=== PATIENT | female | born 1995 | race Caucasian/White ===

== ENCOUNTER 2024-10-30 09:45 | Outpatient (REF) | payer MEDICAID, SELFPAY ==
--- OUTSIDE RECORDS SUMMARY | 2024-10-30 09:00 | XMS_ITS | Encounter Summary ---
Author Organization [employer] Address [address] [place] [address] Care Team Providers Care Business Development Associate Name Role Phone Roddy Marcial CNP Primary Care Provider [phone] Encounter Details Date Type Department Care Team ([facility] st Contact Info) Description 10/30/2024 9:00 AM EDT Office Visit [facility] MED & PEDS [address], [place] [id number] Roddy Marcial CNP [address] [place] [address] Encounter to establish care (Primary Dx); Encounter for smoking cessation counseling; Family planning counseling; Dietary counseling; Exercise counseling; Class 3 severe obesity due to excess calories with body mass index (BMI) of 40.0 to 44.9 in adult, unspecified whether serious comorbidity present; Irregular periods Social History Tobacco Use Types Packs/Day Years Used Date Smoking Tobacco: Never Smokeless Tobacco: Current Tobacco Cessation:Ready to Q uit: Not Asked; Counseling Given: Not Answered Alcohol Use Standard Drinks/Week Comments Yes 0 (1 standard drink = 0.6 oz pur e alcohol) Depression Answer Date Recorded Patient Health Questionnaire-9 Score 4 10/30/2024 Patient Health Questionnaire-9 Score 4 10/30/2024 Last PHQ-9: Questionnaire Data Not on file 0 10/30/2024 Housing Stability Answer Date Recorded What is your housing situation today? I am not s ure 10/30/[address] you li ve. Do you have problems with any of the following? None of the above 10/30/2024 Food Insecurity Answer Date Recorded Within the past 12 months, y ou worried that your food would run out before you got money to buy more: Never True 10/30/2024 Within the past 12 months,th e food you bought just didn't last and you didn't have enough money to get more: Never True Transportation Answer Date Recorded In the past 12 months, has l ack of transportation kept you from medical appts, meetings, work or from getting things needed for daily living? No 10/30/2024 Utilities Answer Date Recorded In the past 12 months, has t he electric, gas, oil or water company threatened to shut off services in your home? No 10/30/2024 Depression Answer Date Recorded Patient Health Questionnaire-2 Score 0 10/30/2024 Internet Access Answer Date Recorded Internet Access Q1 Yes 10/30/2024 Internet Access Q2 Not on file 10/30/2024 Comments Unknown Intention Date Recorded Wants to become (finding) 10/30 Sex and Gender Information Value Date Recorded Sex Assigned at Female 10/29/2024 1:48 PM EDT Legal Sex Female 9:14 AM EDT Gender Identity Female 10/29/2024 1:48 PM EDT Sexual Orientation Don't know 10/29/2024 1: 48 PM EDT documented as of this encounter Last Filed Vital Signs Vital Sign Reading Time Taken Comments Blood Pressure 122/80 10/30/2024 9:02 AM EDT Pulse 80 10/30/2024 9:02 AM EDT Temperature 36.9 C (98.4 F) 10/30/2024 9:02 AM EDT Respiratory Rate 20 10/30/2024 9:02 AM EDT Oxygen Saturation - - Inhaled Oxygen Concentration - - Weight 111 kg (245 lb) 10/30/2024 9:02 AM EDT Height 157.5 cm (5' 2 ) 10/30/2024 9:02 AM EDT Body Mass Index 44.81 10/30/2024 9:02 AM EDT documented in this encounter Functional Status * Over the past 2 weeks, how often have you been bothered by any of the following problems? Question Answer Date of Assessment Author Patient Health Questionnaire -2 Score 0 10/30/2024 9:41 AM EDT Margie Madera MA * Little interest or pleasure in doing things Answer Date of Assessment Author Not at all 10/30/2024 9:41 AM EDT Mimi Foy MA * Feeling down, depressed, or hopeless Answer Date of Assessment Author Not at all 10/30/2024 9:41 AM EDT [employer] Mimi lópez [place] * Trouble falling or staying asleep, or sleeping too much Answer Date of Assessment Author Nearly every day 10/30/2024 9:41 AM EDT [employer] Mimi lynn [place] * Feeling tired or having little energy Answer Date of Assessment Author Several days 10/30/2024 9:41 AM EDT [employer] Mimi lópez [place] * Poor appetite or overeating Answer Date of Assessment Author Not at all 10/30/2024 9:41 AM EDT [employer] Mimi lópez [place] * Feeling bad about yourself - or that you are a failure or have let yourself or your family down Answer Date of Assessment Author Not at all 10/30/2024 9:41 AM EDT [employer] Mimi lópez [place] * Trouble concentrating on things, such as reading the newspaper or watching television Answer Date of Assessment Author Not at all 10/30/2024 9:41 AM EDT [employer] Mimi lópez [place] * Moving or speaking so slowly that other people could have noticed? Or the opposite - being so fidgety or restless that you have been moving around a lot more than usual. Answer Date of Assessment Author Not at all 10/30/2024 9:41 AM EDT [employer] Mimi lópez [place] * Thoughts that you would be better off or hurting yourself in some way Answer Date of Assessment Author Not at all 10/30/2024 9:41 AM EDT [employer] Mimi lópez MA * Patient Health Questionnaire-9 Score Answer Date of Assessment Author 4 10/30/2024 9:41 AM EDT [employer] Mimi lópez [place] * How difficult have these problems made it for you to do your work, take care of things at home, or get along with other people? Answer Date of Assessment Author Not difficult at all 10/30/2024 9:41 AM EDT Mimi Ocasio MA documented as of this encounter Progress Notes * Roddy Marcial CNP - 10/30/2024 9:00 AM EDT Subjective: Oswald Kendall is a 29 y.o. female who presents to the office for a new patient visit. Previous PCP unknown. Interim history: Last PCP visit unknown, hasn't seen a doctor since she was a teenager. Never has had cervical cancer screening. Current concerns: Trying to conceive. Last OCPs taken 3-4 months ago. Periods were regular on OCPs. Now has been amenorrheic since last OCP pack. Not currently taking PNV or folic acid. Problem List[1] Surgical History[2] Family History[3] Social History Living situation: Employment/Education: Diet/exercise: Substance use: -alcohol : none -tobacco: vape- uses throughout the day, sometimes wakes up at night to use it. -opioids: none Sexual activity: male partner, feels safe in relationship, seeking for over a year. Contraception: n/a Mental health: - Denies concerns about depression or anxiety; mental health feels manageable Menstrual cycles described as very irregular; history of missed periods, prolonged periods, and unpredictable cycle patterns after stopping control Allergies[4] Review of Systems Constitutional: Negative for fatigue, fever and unexpected weight change. Eyes: Negative. Respiratory: Negative. Cardiovascular: Negative. Gastrointestinal: Negative. Endocrine: Negative for cold intolerance, heat intolerance, polydipsia, polyphagia and polyuria. Genitourinary: Positive for menstrual problem. Negative for dyspareunia, pelvic pain and vaginal discharge. Psychiatric/Behavioral: Negative. Vitals: 10/30/24 0902 BP: 122/80 BP Location: Right arm Patient Position: Sitting BP Cuff Size: Adult Pulse: 80 Resp: 20 Temp: 98.4 ??F (36.9 ??C) TempSrc: Oral Weight: 245 lb (111 kg) Height: 5' 2 (1.575 m) Physical Exam Constitutional: Appearance: Normal appearance. She is normal weight. Cardiovascular: Rate and Rhythm: Normal rate and regular rhythm. Pulses: Normal pulses. Heart sounds: Normal heart sounds. No murmur heard. No friction rub. No gallop. Pulmonary: Effort: Pulmonary effort is normal. No respiratory distress. Breath sounds: Normal breath sounds. No wheezing or rales. Neurological: General: No focal deficit present. Mental Status: She is alert and oriented to person, place, and time. Psychiatric: Mood and Affect: Mood normal. Behavior: Behavior normal. Thought Content: Thought content normal. Judgment: Judgment normal. Assessment & Plan Encounter to establish care 29 y/o F with no chronic medical conditions who is seeking . Routine Screening and Health Maintenance Optometry: needs referral Dentist: needs referral ASCVD risk: 29 y.o. femalesmoker obese Lab Review: orders written for new lab studies as appropriate; see orders Routine Cancer Screening Breast CA: n/a Cervical CA: due Colon CA: n/a Lung CA: n/a Orders: CBC auto differential; Future Basic Metabolic Panel; Future TSH W/Reflex to FT4; Future Lipid Panel, Standard; Future HIV-1/2 Antigen and Antibodies, Fourth Generation, with Reflexes; Future Hepatitis C Antibody with Reflex to HCV, RNA, Quantitative, Real-Time PCR; Future Hemoglobin A1c; Future hCG, Total, Quantitative; Future multivitamin () 27-0.8 MG tablet; Take 1 tablet by mouth Once per day. folic acid (Folvite) 800 MCG tablet; Take 1 tablet (0.8 mg) by mouth Once per day. Encounter for smoking cessation counseling Will start patient on Chantix starter pack for smoking cessation Risks and side effects reviewed. Recommended lifestyle modifications for smoking cessation, including gradual reduction of vaping, increased physical activity, and stress management techniques. Orders: Varenicline Tartrate, Starter, (Chantix Starting Month ) 0.5 MG X 11 & 1 MG X 42 tablet therapy pack; Take 1 tablet by mouth Once per day. Family planning counseling Pt is actively seeking x 1 year Plan to obtain routine labs Plan to complete routine cervical cancer screening at f/u PNV and folic acid rx'd Smoking cessation discussed Based on routine lab work results will consider further infertility workup and specialty referral. Dietary counseling Dietary Recommendations: Fruits, vegetables, whole grains, protein foods, and fat-free or low-fat dairy products are healthychoices. Eat different types of protein foods in your diet. This can include seafood, lean meats, poultry, beans, peas, lentils, nuts, seeds, soy products, and eggs. Limit foods and beverages higher in added sugars, saturated fat, and sodium. Exercise counseling Exercise Recommendations: At least 150 minutes of moderate-intensity physical activity per week, or an equivalent combinationof moderate- and vigorous-intensity activity Class 3 severe obesity due to excess calories with body mass index (BMI) of 40.0 to 44.9 in adult, unspecified whether serious comorbidity present Irregular periods Ordered blood test to confirm status due to amenorrhea for 3-4 months. Ordered routine labs to r/o underlying cause F/u within 1 month for pap [1] Patient Active Problem List Diagnosis Severe obesity (CMS/HCC) [2] No past surgical history on file. [3] No family history on file. [4] Allergies Allergen Reactions Acetaminophen Rash documented in this encounter Plan of Treatment Upcoming Encounters Date Type Department Care Team (Late st Contact Info) Description 12/10/2024 9:00 AM EDT Procedure Visit [facility] [address] [place] [address] Susan Quintana MD [address] [place] [address] 04/30/2025 10:15 AM EDT Office Visit [facility] [address] [place] [address] Naldo Young Scheduled Orders Name Type Priority Associated Diagnoses Orde r Schedule CBC auto differential Lab Routine Encounter to establish care Expected: 10/30/2024 (Approximate), Expires: 10/30/2025 Basic Metabolic Panel Lab Routine Encounter to establish care Expected: 10/30/2024 (Approximate), Expires: 10/30/2025 TSH W/Reflex to FT4 Lab Routine Encounter to establish care Expected: 10/30/2024 (Approximate), Expires: 10/30/2025 Lipid Panel, Standard Lab Routine Encounter to establish care Expected: 10/30/2024 (Approximate), Expires: 10/30/2025 HIV-1/2 Antigen and Antibodies, Fourth Generation, with Reflexes Lab Routine Encounter to establish care Expected: 10/30/2024 (Approximate), Expires: 10/30/2025 Hepatitis C Antibody with Reflex to HCV, RNA, Quantitative, Real-Time PCR Lab Routine Encounter to establish care Expected: 10/30/2024, Expires: 10/30/2025 Hemoglobin A1c Lab Routine Encounter to establish care Expected: 10/30/2024 (Approximate), Expires: 10/30/2025 hCG, Total, Quantitative Lab Routine Encounter to establish care Expected: 10/30/2024 (Approximate), Expires: 10/30/2025 documented as of this encounter Visit Diagnoses Diagnosis Encounter to establish care- Primary Encounter for smoking cessation counseling Family planning counseling Other general counseling and advice for contraceptive management Dietary counseling Dietary surveillance and counseling Exercise counseling Class 3 severe obesity due to excess calories with body mass index (BMI) of 40.0 to 44.9 in adult, unspecified whether serious comorbidity present Irregular periods documented in this encounter Additional Health Concerns Assessment Noted Time PHQ-9 Depression Total Score: 4 10/31/19 9:41 AM EDT documented as of this encounter Care Teams Business Development Associate Relationship Specialty Start Date End Date Roddy Marcial CNP [address] [place] [address] PCP - General Family Medicine 10/30/24 documented as of this encounter
--- OUTSIDE RECORDS SUMMARY | 2024-10-30 11:00 | XMS_ITS | Encounter Summary ---
Author Organization [employer] Address [address] [facility] [address] [place] [address] Care Team Providers Care Director Of Manufacturing Name Role Phone Roddy Marcial NEETU Primary Care Provider [phone] Reason for Visit * Reason Comments Routine Cleaning Dental Exam Encounter Details Date Type Department Care Team ([facility] st Contact Info) Description 10/30/2024 11:00 AM EDT Office Visit [facility] ADULT DENTAL [address] [place] [address] Naldo Young Dental caries (Primary Dx) Social History Tobacco Use Types Packs/Day Years Used Date Smoking Tobacco: Never Smokeless Tobacco: Current Alcohol Use Standard Drinks/Week Comments Yes 0 [...] Q2 Not on file 10/30/2024 Comments Unknown Sex and Gender Information Value Date Recorded Sex Assigned at Female 10/29/2024 1:48 PM EDT Legal Sex Female 9:14 AM EDT Gender Identity Female 10/29/2024 1:48 PM EDT Sexual Orientation Don't know 10/29/2024 1: 48 PM EDT documented as of this encounter Last Filed Vital Signs Vital Sign Reading Time Taken Comments Blood Pressure 124/76 10/30/2024 10:45 AM EDT Pulse 65 10/30/2024 10:45 AM EDT Temperature - - Respiratory Rate - - Oxygen Saturation - - Inhaled Oxygen Concentration - - Weight - - Height - - Body Mass Index - - documented in this encounter Functional Status * [...] 9:41 AM EDT Mimi Foy MA * Trouble falling or staying asleep, or sleeping too much Answer Date of Assessment Author Nearly every day 10/30/2024 9:41 AM EDT Mimi Suggs MA * Feeling tired or having little energy Answer Date of Assessment Author Several days 10/30/2024 9:41 AM EDT Mimi Foy MA * Poor appetite or overeating Answer Date of Assessment Author Not at all 10/30/2024 9:41 AM EDT Mimi Suggs MA * Feeling bad about yourself - or that you are a failure or have let yourself or your family down Answer Date of Assessment Author Not at all 10/30/2024 9:41 AM EDT Mimi Foy MA * Trouble concentrating on things, such as reading the newspaper or watching television Answer Date of Assessment Author Not at all 10/30/2024 9:41 AM EDT Mimi Foy MA * Moving or speaking so slowly that other people could have noticed? Or the opposite - being so fidgety or restless that you have been moving around a lot more than usual. Answer Date of Assessment Author Not at all 10/30/2024 9:41 AM EDT Mimi Foy MA * Thoughts that you would be better off or hurting yourself in some way Answer Date of Assessment Author Not at all 10/30/2024 9:41 AM EDT Mimi Foy MA * Patient Health Questionnaire-9 Score Answer Date of Assessment Author 4 10/30/2024 9:41 AM EDT Mimi Foy MA * How difficult have these problems made it for you to do your work, take care of things at home, or get along with other people? Answer Date of Assessment Author Not difficult at all 10/30/2024 9:41 AM EDT Mimi Ocasio MA documented as of this encounter Plan of Treatment Upcoming Encounters Date Type Department Care Team (Late st Contact Info) Description 12/10/2024 9:00 AM EDT Procedure Visit [facility] MED [facility] PED[facility] [address] [place] [address] Susan Quintana MD [address] [place] [address] 04/30/2025 10:15 AM EDT Office Visit [facility] ADULT D[facility] [address] [place] [address] Naldo Young Scheduled Orders Name Type Priority Associated Diagnoses Orde r Schedule 31 NIKKIE 31 NIKKIE RESIN-BASED COMPOSITE - 2 SURF, POSTERIOR Dental Routine [address] [facility] 10/30/2024 2 LO 2 LO RESIN-BASED COMPOSITE - 2 SURF, POSTERIOR Dental Routine [address] [place] 10/30/2024 3 MO 3 MO RESIN-BASED COMPOSITE - 2 SURF, POSTERIOR Dental Routine 1 Occurrences [facility] 10/30/2024 10 ML 10 ML RESIN-BASED COMPOSITE - 2 SURF, ANTERIOR Dental Routine 1 Occurrences [facility] 10/30/2024 13 MO 13 MO RESIN-BASED COMPOSITE - 2 SURF, POSTERIOR Dental Routine 1 Occurrences [facility] 10/30/2024 15 O 15 O RESIN-BASED COMPOSITE - 1 SURF, POSTERIOR Dental Routine 1 Occurrences [facility] 10/30/2024 18 O 18 O RESIN-BASED COMPOSITE - 1 SURF, POSTERIOR Dental Routine 1 Occurrences [facility] 10/30/2024 29 MOD 29 MOD RESIN-BASED COMPOSITE - 3 SURF, POSTERIOR Dental Routine 1 Occurrences [facility] 10/30/2024 30 MOB 30 MOB RESIN-BASED COMPOSITE - 3 SURF, POSTERIOR Dental Routine 1 Occurrences [facility] 10/30/2024 4,5,12 4,5,12 MAXILLARY PARTIAL DENTURE - RESIN BASE (INCLUDING, RETENTIVE/CLASPING MATERIALS, RESTS, AND TEETH) Dental Routine 1 Occurrences [facility] 10/30/2024 CONSULTATION - DIAGNOSTIC SERVICE PROVIDED BY DENTIST OR PHYSICIAN OTHER THAN REQUESTING DENTIST OR PHYSICIAN Dental Routine 1 Occurrenc es starting 10/30/2024 DENTURE IMPRESSION Dental Routine 1 Occu rrences starting 10/30/2024 BITE REGISTRATION Dental Routine 1 Occur rences starting 10/30/2024 WAX TRY IN Dental Routine 1 Occurrences starting 10/30/2024 COMPREHENSIVE ORAL EVALUATION - NEW OR ESTABLISHED PATIENT Dental Routine 1 Occurrence s starting 10/30/2024 16 16 REMOVAL OF IMPACTED TOOTH - SOFT TISSUE Dental Routine 1 Occurrence s starting 10/30/2024 32 32 REMOVAL OF IMPACTED TOOTH - PARTIALLY BONY Dental Routine 1 Occurre nces starting 10/30/2024 PROPHYLAXIS - ADULT Dental Routine 1 Occ urrences starting 10/30/2024 documented as of this encounter Procedures Procedure Name Priority Date/Time Associated Diagnosis Comments 15 O COMPOSITE FILLING Routine 10/30/2024 12:00 AM EDT 21 DO COMPOSITE FILLING Routine 10/30/2024 12:00 AM EDT 20 MO COMPOSITE FILLING Routine 10/30/2024 12:00 AM EDT 28 DO COMPOSITE FILLING Routine 10/30/2024 12:00 AM EDT 29 MO COMPOSITE FILLING Routine 10/30/2024 12:00 AM EDT 3 O COMPOSITE FILLING Routine 10/30/2024 12:00 AM EDT 30 NIKKIE COMPOSITE FILLING Routine 10/30/2024 12:00 AM EDT 14 O AMALGAM FILLING Routine 10/30/2024 12:00 AM EDT 18 O AMALGAM FILLING Routine 10/30/2024 12:00 AM EDT 29 DO AMALGAM FILLING Routine 10/30/2024 12:00 AM EDT 30 MO AMALGAM FILLING Routine 10/30/2024 12:00 AM EDT documented in this encounter Visit Diagnoses Diagnosis Dental caries- Primary Unspecified dental caries documented in this encounter Additional Health Concerns Assessment Noted Time PHQ-9 Depression Total Score: 4 10/31/19 9:41 AM EDT documented as of this encounter Care Teams Director Of Manufacturing Relationship Specialty Start Date End Date Roddy Marcial CNP [address] [place] [id number] PCP - General Family Medicine 10/30/24 documented as of this encounter
--- OUTSIDE RECORDS SUMMARY | 2024-10-30 11:36 | XMS_ITS | Clinical Summary ---
Author Organization [employer] [facility] it[facility] Address [address] [place] [address] Care Team Providers Care Investor Relations Coordinator Name Role Phone Unavailable Primary Care Provider Unavailabl e Social History Tobacco Use Types Packs/Day Years Used Date Smoking Tobacco: Never Assessed Comments Unknown Sex and Gender Information Value Date Recorded Sex Assigned at Not on file Legal Sex Female 10:48 PM EST Gender Identity Not on file Sexual Orientation Not on file Plan of Treatment Health Maintenance Due Date Last Done Comments DTaP,Tdap,and Td Vaccines (1 - Tdap) 06/16/2015 Hepatitis B Vaccines (1 of 3 - 19+ 3-dose series) 06/16/2015 Cervical Cancer Screening: P ap Smear 2017 COVID-19 Vaccine (3 - Pfizer risk series) 08/03/2020 07/06/2020, 2020 HIV Screening 01/16/2022 Hepatitis C Screening 01/16/2022 Social Influencers of Health Screening 01/16/2022 Depression Screening 02/14/2024 Influenza Vaccine (#1) 2024 HIB Vaccines Aged Out No longer eligi ble based on patient's age to complete this topic HPV Vaccines Aged Out No longer eligi ble based on patient's age to complete this topic Hepatitis A Vaccines Aged Out No long er eligible based on patient's age to complete this topic IPV Vaccines Aged Out No longer eligi ble based on patient's age to complete this topic MMR Vaccines Aged Out No longer eligi ble based on patient's age to complete this topic Meningococcal ACWY Vaccine Aged Out N o longer eligible based on patient's age to complete this topic Meningococcal B Vaccine Aged Out No l onger eligible based on patient's age to complete this topic Pneumococcal Vaccine: Pediatrics (0 to 5 Years) and At-Risk Patients (6 to 49 Years) Aged Out No longer eligible b ased on patient's age to complete this topic RSV Immunization Patients Under 20 months Aged Out No longer eligible b ased on patient's age to complete this topic Varicella Vaccines Aged Out No longer eligible based on patient's age to complete this topic
--- OUTSIDE RECORDS SUMMARY | 2024-10-30 11:36 | XMS_ITS | Clinical Summary ---
Author Organization [employer] Address [address] [facility] 7t [place] [address] Care Team Providers Care Tank Farm Gauger Name Role Phone Roddy Marcial CNP Primary Care Provider [phone] Allergies Active Allergy Reactions Criticality Noted Date Comments Acetaminophen Rash Low 10/30/2024 Medications multivitamin () 27-0.8 MG tabletIndicati ons:Encounter to establish care Take 1 tablet by mouth Once per day. 30 tablet 5 Active folic acid (Folvite) 800 MCG tabletIndicati ons:Encounter to establish care Take 1 tablet (0.8 mg) by mouth Once per day. 30 tablet 11 5 10/31/19 26 Active Varenicline Tartrate, Starter, (Chantix Starting Month ) 0.5 MG X 11 & 1 MG X 42 tablet therapy packIndication s:Encounter for smoking cessation counseling Take 1 tablet by mouth Once per day. 1 each 5 11/30/19 25 Active amoxicillin (Amoxil) 500 MG capsule Take 1 capsule by mouth 2 times daily. 5 10/31/19 25 Discontinued Active Problems Problem Noted Date Diagnosed Date Severe obesity 10/30/2024 Encounters Date Type Department Care Team Description 10/30/2024 11:00 AM EDT Office Visit [facility] ADULT DENTAL [address] [place] [address] Naldo Young Dental caries (Primary Dx) 10/30/2024 9:00 AM EDT Office Visit [facility] MED & PED[facility] [address] [place] [address] Roddy Marcial CNP Encounter to establish care (Primary Dx); Encounter for smoking cessation counseling; Family planning counseling; Dietary counseling; Exercise counseling; Class 3 severe obesity due to excess calories with body mass index (BMI) of 40.0 to 44.9 in adult, unspecified whether serious comorbidity present; Irregular periods 10/30/2024 Refill [facility] [address] [place] [address] Roddy Marcial CNP Encounter for smoking cessation counseling 10/30/2024 Travel 10/23/2024 Patient Outreach [facility] [address] [place] [address] Claudy Christie MD Pre-visit Planning (Pre visit planning LVM ) 10/15/2024 Telephone [facility] [address] [place] [address] Mimi Madera MA chart prep 10/07/2024 Telephone [facility] [address] [place] [address] Claudy Christie MD CHW - New Patient Assistance from Last 3 Months Immunizations Immunization Administration Dates Next Due DTaP 11/27/2000, 8,1996,10/28,1996 HPV, Quadrivalent 08/22/2008 Hep B, Unspecified 1996,1996, 997 HiB, unspecified 12/01/1997, 7,1996,08/15 IPV 11/27/2000, 8,1996,08/15 Influenza, IIV3, injectable 03/31/2006 Influenza, seasonal, injecta ble, preservative free 12/02/2010 MMR 01/17/2002,06/30/1997 Meningococcal ACWY, unspecified 08/22/2008 Pfizer Covid-19 Vaccine 12+ 07/06/2020, Tdap 08/22/2008 Varicella 08/22/2008,06/30/1997 Family History Medical History Relation Name Comments Diabetes Mother high blood pressure Mother Relation Name Status Comments Mother Social History Tobacco Use Types Packs/Day Years [...] Don't know 10/29/2024 1: 48 PM EDT Last Filed Vital Signs Vital Sign Reading Time Taken Comments Blood Pressure 124/76 10/30/2024 10:45 AM EDT Pulse 65 10/30/2024 10:45 AM EDT Temperature 36.9 C (98.4 F) 10/30/2024 9:02 AM EDT Respiratory Rate 20 10/30/2024 9:02 AM EDT Oxygen Saturation - - Inhaled Oxygen Concentration - - Weight 111 kg (245 lb) 10/30/2024 9:02 AM EDT Height 157.5 cm (5' 2 ) 10/30/2024 9:02 AM EDT Body Mass Index 44.81 10/30/2024 9:02 AM EDT Plan of Treatment Upcoming Encounters Date Type Department Care Team (Late st Contact Info) Description 12/10/2024 9:00 AM EDT Procedure Visit [facility] MED [facility] PEDS [address] [place] [address] Susan Quintana MD [address] [place] [address] 04/30/2025 10:15 AM EDT Office Visit [facility] ADULT DENTAL [address] [place] [address] Naldo Young Health Maintenance Due Date Last Done Comments Dental Oral Exam 1996 Dental Prophylaxis 1996 Dental X-Ray: Bitewings 1996 Dental X-Ray: Full Mouth 1996 HIV Screening 1996 Lipid Panel 1996 HPV Vaccines (2 - 2-dose series) 02/22/2009 08/22/2008 Hepatitis C Screening 2014 Pap Smear 2017 DTaP/Tdap/Td Vaccines (7 - Td or Tdap) 08/22/2018 08/22/2008, 11/27/2000, 12/01/1997, Additional history exists COVID-19 Vaccine ( season) 2024 07/06/2020, 2020 Influenza Vaccine (#1) 2024 12/02/2010, 2006 Alcohol/Substance Use Screening 10/30/2025 10/30/2024 Depression Screening 10/30/2025 10/30/2024, 10/31/19 Disability Screening 10/30/2025 10/30/2024 Family Planning (PISQ) 10/30/2025 10/30/2024 SDOH Screening 10/30/2025 10/30/2024 Tobacco Screening 10/30/2025 10/30/2024 Zoster Vaccines (1 of 2) 2046 RSV Patients and Patients Aged 60 years or older (1 - 1-dose 75+ series) 06/16/2071 Hepatitis B Vaccines Completed 1996, 1996, 1996 HIB Vaccines Completed 12/01/1997, 12/14, 1996, Additional history exists IPV Vaccines Completed 11/27/2000, 11/13, 1996, Additional history exists Meningococcal Vaccine Aged Out 08/22/2008 No rene mercedes eligible based on patient's age to complete this topic Hepatitis A Vaccines Aged Out No long er eligible based on patient's age to complete this topic Meningococcal B Vaccine Aged Out No l onger eligible based on patient's age to complete this topic Pneumococcal Vaccine: Pediatrics (0 to 5 Years) and At-Risk Patients (6 to 49) Years Aged Out No longer eligible based on patient's age to complete this topic RSV under 20 months Aged Out No longe r eligible based on patient's age to complete this topic Rotavirus Vaccines Aged Out No longer eligible based on patient's age to complete this topic Procedures Procedure Name Priority Date/Time Associated Diagnosis Comments 15 O COMPOSITE FILLING Routine 10/30/2024 12:00 AM EDT 14 O AMALGAM FILLING Routine 10/30/2024 12:00 AM EDT 18 O AMALGAM FILLING Routine 10/30/2024 12:00 AM EDT 21 DO COMPOSITE FILLING Routine 10/30/2024 12:00 AM EDT 20 MO COMPOSITE FILLING Routine 10/30/2024 12:00 AM EDT 28 DO COMPOSITE FILLING Routine 10/30/2024 12:00 AM EDT 29 MO COMPOSITE FILLING Routine 10/30/2024 12:00 AM EDT 29 DO AMALGAM FILLING Routine 10/30/2024 12:00 AM EDT 30 MO AMALGAM FILLING Routine 10/30/2024 12:00 AM EDT 3 O COMPOSITE FILLING Routine 10/30/2024 12:00 AM EDT 30 NIKKIE COMPOSITE FILLING Routine 10/30/2024 12:00 AM EDT from Last 3 [place] [id number] HSN PARTIAL DENTAL - HSN PARTIAL (MEDICAID) Care Teams Tank Farm Gauger Relationship Specialty Start Date End Date Roddy Marcial CNP [address] [facility] [place] [address] PCP - General Family Medicine 10/30/24
--- OUTSIDE RECORDS SUMMARY | 2024-10-30 11:36 | XMS_ITS | Encounter Summary ---
Author Organization [employer] Address [address] [facility] [address] [place] [address] Care Team Providers Care Berry Grower Name Role Phone Roddy Marcial CNP Primary Care Provider [phone] Reason for Visit * Reason Onset Date Comments Med Refill 10/30/2024 Encounter Details Date Type Department Care Team (Late st Contact Info) Description 10/30/2024 Refill [facility] [address] [place] [address] Roddy Marcial CNP [address] [place] [address] Encounter for smoking cessation counseling Social History Tobacco Use Types Packs/Day Years [...] PM EDT documented as of this encounter Functional Status * Over the [...] AM EDT Mimi Foy MA * Feeling bad about yourself - or that you are a failure or have let yourself or your family down Answer Date of Assessment Author Not at all 10/30/2024 9:41 AM EDT Mimi Foy MA * Trouble concentrating on things, such as reading the newspaper or watching television Answer Date of Assessment Author Not at all 10/30/2024 9:41 AM EDT Sheryl-Mimi Wood MA * Moving or speaking so slowly that other people could have noticed? Or the opposite - being so fidgety or restless that you have been moving around a lot more than usual. Answer Date of Assessment Author Not at all 10/30/2024 9:41 AM EDT Sheryl-Co Mimi lópez [place] * Thoughts that you would be better off or hurting yourself in some way Answer Date of Assessment Author Not at all 10/30/2024 9:41 AM EDT Sheryl-Co Mimi lópez MA * Patient Health Questionnaire-9 [...] Ocasio MA documented as of this encounter Miscellaneous Notes * Telephone Encounter - Meseret Montes LPN - 10/30/2024 11:24 AM EDT Per pharmacy; Incorrect directions for a starter pack. documented in this encounter Plan of Treatment Upcoming Encounters Date Type Department Care Team ([facility] st Contact Info) Description 12/10/2024 9:00 AM EDT Procedure Visit [facility] [address] [place] [address] Susan Quintana MD [address] [place] [address] 04/30/2025 10:15 AM EDT Office Visit [facility] AD[facility] [address] [place] [address] Naldo Young documented as of this encounter Visit Diagnoses Diagnosis Encounter for smoking cessation counseling documented in this encounter Additional Health Concerns Assessment Noted Time PHQ-9 Depression Total Score: 4 10/31/19 9:41 AM EDT documented as of this encounter Care Teams Berry Grower Relationship Specialty Start Date End Date Roddy Marcial CNP [address] [place] [id number] PCP - General Family Medicine 10/30/24 documented as of this encounter
--- OUTSIDE RECORDS SUMMARY | 2024-10-30 11:36 | XMS_ITS | Encounter Summary ---
Author Organization [employer] Address [address] [facility] [address] [place] [address] Care Team Providers Care Quality Assurance Group Leader Name Role Phone Roddy Marcial CNP Primary Care Provider [phone] Encounter Details Date Type Department Care Team (Latest Contact Info) Description 10/30/2024 Travel Social History Tobacco Use Types Packs/Day Years [...] EDT [place] Mimi lópez [place] * Feeling down, depressed, or hopeless Answer Date of Assessment Author Not at all 10/30/2024 9:41 AM EDT Sau[place]o-[facility] Mimi lópez [place] * Trouble falling or staying asleep, or sleeping too much Answer Date of Assessment Author Nearly every day 10/30/2024 9:41 AM EDT Sheryl-C Mimi lynn MA * Feeling tired or [...] EDT [place] Mimi lópez [place] * Trouble concentrating on [...] 9:41 AM EDT Sheryl-Mimi Wood MA * Thoughts that you would be better off or hurting yourself in some way Answer Date of Assessment Author Not at all 10/30/2024 9:41 AM EDT Mimi Foy MA * Patient Health Questionnaire-9 Score Answer Date of Assessment Author 4 10/30/2024 9:41 AM EDT Sheryl-Mimi Wood MA * How difficult have these problems [...] 9:00 AM EDT Procedure Visit [facility] MED & PEDS [address] [place] [address] Susan Quintana MD [address] [place] [address] 04/30/2025 10:15 AM EDT Office Visit [facility] ADULT DENTAL [address] [place] [address] Naldo Young documented as of this encounter Visit Diagnoses Not on filedocumented in this encounter Additional Health Concerns Assessment Noted Time PHQ-9 Depression Total Score: 4 10/31/19 9:41 AM EDT documented as of this encounter Care Teams Quality Assurance Group Leader Relationship Specialty Start Date End Date Roddy Marcial CNP [address] [place] [address] PCP - General Family Medicine 10/30/24 documented as of this encounter
[2024-10-30 14:18] LABS: MANUAL DIFF FLAG NO
[2024-10-30 14:29] LABS: Hematocrit 35.8 % (37.0-47.0); Hemoglobin 11.6 g/dl (12.0-16.0); Imm Gran Abs Auto 0.01 X10*3/uL (0.00-0.03); Imm Gran Pct Auto 0.3 % (0.0-0.4); Lymphocytes Absolute Auto 1.2 X10*3/uL (1.2-4.9); Mean Corpuscular HGB Conc 32.4 g/dl (31.0-35.0); Mean Corpuscular Hemoglobin 28.6 pg (27.0-33.0); Mean Corpuscular Volume 88.2 fL (80.0-98.0); NRBC Abs Auto 0.000 X10*3/uL (0.0-0.012); NRBC Pct Auto 0.0 /100WBC (0.0-0.2); Platelet Count 322 X10*3/uL (160-400); Red Blood Count 4.06 X10*6/uL (4.20-5.50); White Blood Count 3.9 X10*3/uL (4.8-10.8)
[2024-10-30 14:39] LABS: Hemoglobin A1C 122.7589 umol/L; Total Hemoglobin (HGBA1C) 3076.4253 umol/L
[2024-10-30 14:59] LABS: Anion Gap 10 (12-20); Blood Urea Nitrogen 16 mg/dL (9-16); Calcium 8.9 mg/dL (8.4-10.2); Carbon Dioxide 28 mmol/L (22-29); Chloride 108 mmol/L (96-108); Cholesterol 194 mg/dL (<200); Estimated Glomerular Filt Rate > 60; HDL Cholesterol 56 mg/dL (>40); Potassium 4.4 mmol/L (3.3-5.1); Sodium 142 mmol/L (135-145); Triglycerides 60 mg/dL (<150)
[2024-10-31 05:38] LABS: HIV Num 1 0.05 S/CO (0.00-0.99); ~HepC Num1 0.08 S/CO (0.00-0.79); ~Hepatitis C Antibody Nonreactive (Nonreactive)
== END 2024-10-30 09:46 | disposition home or self-care (01) ==
LOC: HO.CHCLDS 09:45
DX: Z11.4 Encounter for screening for human immunodeficiency virus [HIV] (principal); Z11.59 Encounter for screening for other viral diseases; Z76.89 Persons encountering health services in other specified circumstances
CPT/HCPCS: 36415; 80048; 80061; 83036; 84443; 84702; 85025; 86803; 87389

== ENCOUNTER 2024-12-11 14:00 | Outpatient (REF) | payer MEDICAID, SELFPAY ==
--- OUTSIDE RECORDS SUMMARY | 2024-12-16 15:15 | XMS_ITS | Data Portability ---
Author Organization [facility] [address] Address [address] [place] [address] Assessment No assessment recorded. Plan of Treatment Reminders Order Date Submit Date Provider Last Modified By Organization Details Last Modified Time Details Appointments None record ed. Lab None record ed. Referral None record ed. Procedures None record ed. Surgeries None record ed. Imaging None record ed. Medication Orders None record ed. Patient TargetsNo targets recorded. Patient InstructionsNo instructions recorded. Reason for Referral None Reported. Medical Equipment None Reported. Vitals None Recorded Social History None recorded. Functional Status None recorded. Mental Status None recorded. Family History Nothing Reported. Medical History No medical history recorded. Gynecological HistoryNo gynecological history recorded. Obstetrics History GPAL:G 0 P 0 0 0 0 Past Encounters Encounter ID Performer Location Encounter Start Date Encounter Closed Date Diagnosis/Indication Diagnosis SNOMED-CT Code Diagnosis ICD10 Code Diagnosis IMO Codes Diagnosis Note [id number] [facility] [facility] [address] [place] [phone] 12/09/2021 18:08:32 12/09/2021 19:04:24 [id number] [place] [phone] 01/20/2019 14:04:18 01/20/2019 14:58:15 Health Concerns Section Related Observation LastModified by Organization Detai ls LastModified Time None Recorded Concern Status LastModified by Organization Details LastModified Time None Recorded Advance Directives Directive None Recorded Payers Insurance Date Sequence Insurance Name Policy Number Policy Syed Covered Member ID Syed Member ID Guarantor Name 08/16/2023 2 [place] [facility] Oswald Kendall [id number] Oswald Kendall 08/15/2023 1 [facility] (MEDICAID HMO) [id number] Oswald Kendall [id number] Oswald Kendall OBGyn Episode No OBEpisode recorded.
--- OUTSIDE RECORDS SUMMARY | 2024-12-16 15:15 | XMS_ITS | Clinical Summary ---
Author Organization [employer] Address [address] [facility] [facility] [address] [place] [address] Care Team Providers Care Brick Maker Name Role Phone Roddy Marcial CNP Primary Care Provider [phone] Allergies Active Allergy Reactions Criticality Noted Date Comments Acetaminophen Rash Low 10/30/2024 Medications folic acid (Folvite) 800 MCG tabletIndicati ons:Encounter to establish care Take 1 tablet (0.8 mg) by mouth Once per day. 30 tablet 11 10/31/19 25 026 Active Sodium Fluoride 1.1 % creamIndicatio ns:Dental caries Occidental teeth for 2 minutes, morning and night. Spit, do not rinse. Do not eat or drink anything for 30 minutes following use. 112 g 3 10/31/19 25 Active multivitamin () 27-0.8 MG tabletIndicati ons:Encounter to establish care TAKE 1 TABLET BY MOUTH EVERY DAY 30 tablet 12/03/19 25 Active multivitamin () 27-0.8 MG tabletIndicati ons:Encounter to establish care Take 1 tablet by mouth Once per day. 30 tablet 10/31/19 25 025 Discontinued(Re order (will not trigger notification to Pharmacy)) Varenicline Tartrate, Starter, (Chantix Starting Month ) 0.5 MG X 11 & 1 MG X 42 tablet therapy packIndication s:Encounter for smoking cessation counseling Take 0.5 mg by mouth Once daily for 3 days, THEN 0.5 mg 2 times daily for 4 days, THEN 1 mg Once daily for 21 days. 53 each 10/31/19 25 025 Discontinued(Co st of medication) Active Problems Problem Noted Date Diagnosed Date Severe obesity (CMS/HCC) 10/30/2024 Encounters Date Type Department Care Team Description 12/10/2024 9:00 AM EDT Procedure Visit [facility] [address] [place] [address] Susan Quintana MD Infertility counseling (Primary Dx); Abnormal uterine bleeding (AUB); Cervical cancer screening; Routine screening for STI (sexually transmitted infection) 12/10/2024 Travel 12/01/2024 Refill [facility] [address] [place] [address] Roddy Marcial CNP Encounter to establish care 10/31/2024 Results Follow-Up [facility] [address] [place] [address] Roddy Marcial CNP CBC auto differential, Basic Metabolic Panel, TSH W/Reflex to FT4, Additional followed-up results: 5 10/31/2024 Orders Only [facility] [address] [place] [address] Roddy Marcial CNP Hypochromic microcytic anemia (Primary Dx) 10/30/2024 11:00 AM EDT Office Visit [facility] [address] [place] [address] Naldo Young Dental caries (Primary Dx); Dental calculus 10/30/2024 9:00 AM EDT Office Visit [facility] [address] [place] [address] Roddy Marcial CNP Encounter to establish care (Primary Dx); Encounter for smoking cessation counseling; Family planning counseling; Dietary counseling; Exercise counseling; Class 3 severe obesity due to excess calories with body mass index (BMI) of 40.0 to 44.9 in adult, unspecified whether serious comorbidity present; Irregular periods 10/30/2024 Refill [facility] [address] [place] [address] Roddy Marcial CNP Encounter for smoking cessation counseling 10/30/2024 Travel 10/23/2024 Patient Outreach [facility] [address] [place], [place] [phone] Claudy Christie MD Pre-visit Planning (Pre visit planning LVM ) 10/15/2024 Telephone [facility] [address] [place] [address] Mimi Madera MA chart prep 10/07/2024 Telephone [facility] [address] [place] [address] Claudy Christie MD [facility] - New Patient [...] Types Packs/Day Years Used Date Smoking Tobacco: Some Days Cigarettes Smokeless Tobacco: Current Alcohol Use Standard Drinks/Week [...] Access Q2 Not on file 10/30/2024 Comments No Intention Date Recorded Wants to become (finding) 10/30 Sex and Gender Information Value Date Recorded Sex Assigned at Female 10/29/2024 1:48 PM EDT Legal Sex Female 9:14 AM EDT Gender Identity Female 10/29/2024 1:48 PM EDT Sexual Orientation Don't know 10/29/2024 1: 48 PM EDT Last Filed Vital Signs Vital Sign Reading Time Taken Comments Blood Pressure 124/72 12/10/2024 9:25 AM EDT Pulse 67 12/10/2024 9:25 AM EDT Temperature 36.5 C (97.7 F) 12/10/2024 9:25 AM EDT Respiratory Rate 16 12/10/2024 9:25 AM EDT Oxygen Saturation 99% 12/10/2024 9:25 AM EDT Inhaled Oxygen Concentration - - Weight 110 kg (243 lb) 12/10/2024 9:25 AM EDT Height 157.5 cm (5' 2 ) 12/10/2024 9:25 AM EDT Body Mass Index 44.45 12/10/2024 9:25 AM EDT Plan of Treatment Upcoming Encounters Date Type Department Care Team (Late st Contact Info) Description 01/03/2025 10:00 AM EST Office Visit [facility] [address] [place] [address] Roddy Marcial, NEETU [address] [place] [address] 04/30/2025 10:15 AM EDT Office Visit [facility] [address] [place] [address] Naldo Young Health Maintenance Due Date Last Done Comments HPV Vaccines (2 - 2-dose series) 02/22/2009 08/22/2008 Pneumococcal Vaccine: Pediatrics (0 to 5 Years) and At-Risk Patients (6 to 49) Years (1 of 2 - PCV) 06/16/2015 Pap Smear 2017 DTaP/Tdap/Td Vaccines (7 - Td or Tdap) 08/22/2018 08/22/2008, 11/27/2000, 12/01/1997, Additional history exists Dental Oral Exam 04/30/2025 10/30/2024 Dental Prophylaxis 04/30/2025 10/30/2024 Influenza Vaccine (#1) 2025 12/02/2010, 2006 Postponed from 10/14/2024 (Patient Refused) Alcohol/Substance Use Screening 10/30/2025 10/30/2024 Depression Screening 10/30/2025 10/30/2024, 10/31/19 Diabetes: Hemoglobin A1C 10/30/2025 10/30/2024 Family Planning (PISQ) 10/30/2025 10/30/2024 SDOH Screening 10/30/2025 10/30/2024 Dental X-Ray: Bitewings 10/31/2025 10/30/2024 COVID-19 Vaccine ( season) 2025 07/06/2020, 2020 Postponed from 10/14/2024 (Patient Refused) Disability Screening 12/10/2025 12/10/2024 Tobacco Screening 12/10/2025 12/10/2024 Dental X-Ray: Full Mouth 11/01/2027 10/30/2024 Lipid Panel 10/30/2029 10/30/2024 Zoster Vaccines (1 of 2) 2046 [...] on patient's age to complete this topic HIV Screening Completed 10/30/2024 Hepatitis C Screening Completed 10/30/2024 Hepatitis A Vaccines Aged Out No long [...] Procedure Name Priority Date/Time Associated Diagnosis Comments CASE PRESENTATION, DETAILED AND EXTENSIVE TREATMENT PLANNING Routine 10/30/2024 11:00 AM EDT ORAL HYGIENE INSTRUCTIONS Routine 10/30/2024 11:00 AM EDT PROPHYLAXIS - ADULT Routine 10/30/2024 1 1:00 AM EDT INTRAORAL - COMPLETE SERIES OF RADIOGRAPHIC IMAGES Routine 10/30/2024 11:00 AM EDT COMPREHENSIVE ORAL EVALUATION - NEW OR ESTABLISHED PATIENT Routine 10/30/2024 11:00 AM EDT Dental caries HCG, TOTAL, QN Routine 10/30/2024 9:50 AM EDT Encounter to establish care HEMOGLOBIN A1C Routine 10/30/2024 9:50 AM EDT Encounter to establish care HEPATITIS C AB W/REFL TO HCV RNA, QN, PCR Routine 10/30/2024 9:50 AM EDT Encounter to establish care HIV 1/2 ANTIGEN/ANTIBODY, FOURTH GENERATION W/RFL Routine 10/30/2024 9:50 AM EDT Encounter to establish care LIPID PANEL, STANDARD Routine 10/30/2024 9:50 AM EDT Encounter to establish care TSH W/REFLEX TO FT4 Routine 10/30/2024 9 :50 AM EDT Encounter to establish care BASIC METABOLIC PANEL Routine 10/30/2024 9:50 AM EDT Encounter to establish care CBC WITH AUTO DIFFERENTIAL Routine 10/30/2024 9:50 AM EDT Encounter to establish care 15 O COMPOSITE FILLING Routine 12:00 AM EDT 14 O AMALGAM FILLING [...] 12:00 AM EDT from Last 3 Months Results * TSH W/Reflex to FT4 (10/30/2024 9:50 AM EDT) Pathologist [facility] TSH reflex Free T4 2.01 0.32 - 4.0 uIU/mL [facility] Blood Venous blood specimen / Unknown 10/30/2024 9:50 AM EDT 10/30/2024 2:00 PM EDT [facility] LAB BLOOD ORDERABLES Janey l Result [facility] [address] [place] [address] [phone] * (ABNORMAL) CBC auto differential (10/30/2024 9:50 AM EDT) White Blood Count 3.9(L) 4.8 - 10.8 X10*3/uL [facility] Red Blood Count 4.06(L) 4.20 - 5.50 X10*6/uL [facility] Hemoglobin 11.6(L) 12.0 - 16.0 g/dl [facility] Hematocrit 35.8(L) 37.0 - 47.0 % [facility] Mean Corpuscular Volume 88.2 80.0 - 98.0 fL [facility] Mean Corpuscular Hemoglobin 28.6 27.0 - 33.0 pg [facility] Mean Corpuscular HGB Conc 32.4 31.0 - 35.0 g/dl [facility] Red Cell Distribution Width 14.6 11.0 - 16.0 % [facility] Platelet Count 322 160 - 400 X10*3/uL [facility] Mean Platelet Volume 11.6 9.4 - 12.3 fL [facility] Neutrophils Percent Auto 56.4 45 - 73 % [facility] Imm Gran Pct Auto 0.3 0.0 - 0.4 % [facility] Lymphocytes Percent Auto 31.2 20 - 40 % [facility] Monocytes Percent Auto 9.8 2 - 11 % [facility] Eosinophils Percent Auto 1.3 0 - 4 % [facility] Basophils Percent Auto 1.0 0 - 2 % [facility] NRBC Pct Auto 0.0 0.0 - 0.2 /100WBC [facility] Neutrophils Absolute Auto 2.2 2.0 - 8.3 x10*3/uL [facility] Imm Gran Abs Auto 0.01 0.00 - 0.03 X10*3/uL [facility] Lymphocytes Absolute Auto 1.2 1.2 - 4.9 X10*3/uL [facility] Monocytes Absolute Auto 0.4 0.1 - 1.2 X10*3/uL [facility] Eosinophils Absolute Auto 0.1 0.0 - 0.4 X10*3/uL [facility] Basophils Absolute Auto 0.0 0.0 - 0.2 X10*3/uL [facility] NRBC Abs Auto 0.000 0.0 - 0.012 X10*3/uL [facility] Blood Venous blood specimen / Unknown 10/30/2024 9:50 AM EDT 10/30/2024 2:00 PM EDT [facility] LAB BLOOD ORDERABLES Janey l Result Performing Organization Address [facility]/ZIP Co de Phone Number [facility] [address] [place] [address] [phone] * Hepatitis C Antibody with Reflex to HCV, RNA, Quantitative, Real-Time PCR (10/30/2024 9:50 AM EDT) Hepatitis C Antibody Nonreactive Nonreactive [facility] Comment:Antibodies to HCV no t detected; does not exclude early acuteHCV infection. Blood Venous blood specimen / Unknown 10/30/2024 9:50 AM EDT 10/30/2024 2:00 PM EDT [facility] LAB BLOOD ORDERABLES Janey l Result Performing Organization Address City/[facility] Co de Phone Number [facility] [address] [place] [address] [phone] * HIV-1/2 Antigen and Antibodies, Fourth Generation, with Reflexes (10/30/2024 9:50 AM EDT) HIV AB/AG Nonreactive Nonreactive [facility] Comment:HIV-1 p24 Ag and/or HIV-1/HIV-2 Ab not detected.A test result that is nonreactive does not exclude thepossibility of exposure to or infection with HIV-1 and/orHIV-2. Nonreactive results in this assay for individualswith prior exposure to HIV-1 and/or HIV-2 may be due toantigen and antibody levels that are below the limit ofdetection of this assay.The [employer] HIV Ag/Ab Combo assay result andsupplemental assay results should be interpreted inconjunction with the patient's clinical presentation,history and other laboratory results. If the results areinconsistent with clinical evidence, additional testing issuggested to confirm the result. Blood Venous blood specimen / Unknown 10/30/2024 9:50 AM EDT 10/30/2024 2:00 PM EDT [facility] LAB BLOOD ORDERABLES Janey l Result Performing Organization Address [facility] Co de Phone Number [facility] [address] [place] [address] [phone] * hCG, Total, Quantitative (10/30/2024 9:50 AM EDT) HCG Quantitative <2 mIU/mL [facility] Comment:Weeks post LMP Appro ximate hCG(Last Menstrual Period) Range (mIU/ml)3 - 4 weeks 9 - 1304 - 5 weeks 75 - 2,6005 - 6 weeks 850 - 20,8006 - 7 weeks 4000 - 100,2007 - 12 weeks 11,500 - 289,69690 - 16 weeks 18,300 - 137,67822 - 29 weeks (2nd trimester) 1,400 - 53,44760 - 41 weeks (3rd trimester) 940 - 60,000The Wallace B- hCG assay is used for the early detection ofpregnancy; it cannot be used to diagnose any conditionunrelated to . If a B-hCG level is not supportedby the clinical evidence, results should be confirmed by analternative method (qualitative urine hCG, for example). Blood Venous blood specimen / Unknown 10/30/2024 9:50 AM EDT 10/30/2024 2:00 PM EDT [facility] LAB BLOOD ORDERABLES Janey l Result Performing Organization Address [facility]/ZIP Co de Phone Number [facility] [address] [place] [address] [phone] * Hemoglobin A1c (10/30/2024 9:50 AM EDT) Hemoglobin A1c 5.8 <6.0 % [facility] Comment:Hemoglobin A1C Refer ence Range Adults: 4.8 - 6.0 % Non diabetic: < 6.0 % Goal: < 7.0 %Additional Action Suggested: > 8.0 %Note: Hemoglobin A1c results are invalid for patients with abnormal amounts of HbF. Blood transfusions may impact the HbA1c concentration in the patient sample. Estimated Average Glucose 120 mg/dL [facility] Comment:eAG = Estimated ave rage glucose which is %A1C expressed asaverage glucose, using the formula of the O2L-UmcilrxPluzbqq Glucose study (ADAG), Diabetes Care, Vol.31,#8,2007 Blood Venous blood specimen / Unknown 10/30/2024 9:50 AM EDT 10/30/2024 2:00 PM EDT [facility] LAB BLOOD ORDERABLES Janey l Result [facility] [address] [place] [phone] * (ABNORMAL) Lipid Panel, Standard (10/30/2024 9:50 AM EDT) Triglycerides 60 <150 mg/dL [facility] Comment:Desirable Triglyceri de: less than 150 mg/dLBorderline High Triglyceride 150-199 mg/dLHigh Triglyceride: 200-499 mg/dLVery High Triglyceride: greater than or equal to 5OO mg/dL Cholesterol 194 <200 mg/dL [facility] Comment:Desirable Cholestero l: less than 200 mg/dLBorderline High Cholesterol: 200-239 mg/dLHigh Cholesterol: greater than 239 mg/dL LDL Cholesterol Calculated 126(H) <100 mg/dL [facility] Comment:Desirable LDL: less than 100 mg/dLNear Optimal/Above Optimal LDL: 110- 129 mg/dLBorderline High LDL: 130-159 mg/dLHigh LDL: 160-189 mg/dLVery High LDL: greater than or equal to 190 mg/dL HDL Cholesterol 56 >40 mg/dL [facility] Comment:Desirable HDL: great er than 40 mg/dL Note: This HDL assay may give artificially low results in patients with liver disease. Blood Venous blood specimen / Unknown 10/30/2024 9:50 AM EDT 10/30/2024 2:00 PM EDT [facility] [employer] LAB BLOOD ORDERABLES Janey l Result Performing Organization Address [facility] Co de Phone Number [facility] [address] [place] [phone] [phone] * (ABNORMAL) Basic Metabolic Panel (10/30/2024 9:50 AM EDT) Sodium 142 135 - 145 mmol/L [facility] Potassium 4.4 3.3 - 5.1 mmol/L [facility] Chloride 108 96 - 108 mmol/L [facility] Carbon Dioxide 28 22 - 29 mmol/L [facility] Anion Gap 10(L) 12 - 20 [facility] Urea Nitrogen (BUN) 16 9 - 16 mg/dL [facility] Creatinine, Serum 0.77 0.5 - 1.4 mg/dL [facility] Estimated Glomerular Filt Rate >60 [facility] Comment:Chronic Kidney Disea se: Estimated GFR < 60 mL/min/[id number] Kidney Disease: Estimated GFR < 15 mL/min/1.73m2 Glucose 98 60 - 115 mg/dL [facility] Calcium 8.9 8.4 - 10.2 mg/dL [facility] Blood Venous blood specimen / Unknown 10/30/2024 9:50 AM EDT 10/30/2024 2:00 PM EDT [facility] LAB BLOOD ORDERABLES Janey l Result Performing Organization Address City/[facility]/ZIP Co de Phone Number [facility] [address] [place] [address] [phone] from Last 3 Months Insurance HSN PARTIAL DENTAL - HSN PARTIAL (MEDICAID) Care Teams Brick Maker Relationship Specialty Start Date End Date Roddy Marcial CNP [address] [place] [address] PCP - General Family Medicine 10/30/24
[2024-12-16 20:33] LABS: C. trachomatis RNA TMA NOT DETECTED (NOT DETECTED); N. gonorrhoeae RNA TMA NOT DETECTED (NOT DETECTED); Trichomonas (NAAT) NOT DETECTED (NOT DETECTED)
== END 2024-12-11 14:01 | disposition home or self-care (01) ==
LOC: HO.LNP 14:00
PROVIDERS: Visit Provider Family Medicine
DX: Z12.4 Encounter for screening for malignant neoplasm of cervix (principal); Z20.2 Contact with and (suspected) exposure to infections with a predominantly sexual mode of transmission
CPT/HCPCS: 87491; 87591; 87661; 88175